=== PATIENT | female | born 1975 | race Hispanic/Latino ===

== ENCOUNTER 2020-04-27 21:17 | Emergency (ER) | payer SELFPAY ==
--- NOTE | ~2020-04-27 | XR_ITS ---
EXAMINATION: XR chest 1V portable DATE: 04/27/2020 21:52 INDICATION: Lower jaw pain. TECHNIQUE: A single frontal view of the chest was obtained. COMPARISON: Chest 2 views 07/18/2019, chest CT 07/18/2019 FINDINGS: There is no pneumonia, pleural effusion, or pneumothorax. Cardiomegaly is noted. IMPRESSION: 1. Cardiomegaly. Reviewed, dictated and finalized at location A. IMPRESSION: 1. Cardiomegaly.
[2020-04-27 21:19] VITALS: BP 183/87; PULSE 66; RESP 18; TEMP 36.5; O2SAT 100
--- NOTE | 2020-04-27 21:29 | ECG_ITS ---
Measurements Intervals [place] Rate: 60 P: 47 MA: 161 QRS: 11 QRSD: 99 T: 28 QT: 399 QTc: 400 Interpretive Statements SINUS RHYTHM POSSIBLE LEFT ATRIAL ENLARGEMENT DELAYED PRECORDIAL R/S TRANSITION BORDERLINE ECG Electronically Signed On 04-28-2020 7:05:25 CDT by Cipriano Aguirre D.O.
--- NOTE | 2020-04-27 21:31 | ED.DENTAL ---
HPI - Dental/Oral General Chief complaint: Dental/Oral Stated complaint: dental pain Time Seen by Provider: 04/27/20 21:25 Source: patient and family Mode of arrival: ambulatory Limitations: language barrier History of Present Illness HPI Narrative: Patient is a 44-year-old female who presents to emergency department for evaluation of gross dental pain to the lower teeth with history of gross dental decay last several days has had sharp pain worse with eating. Patient also noted that she has had some mild discomfort of the mid chest that radiates from the epigastrium up into the mouth. Patient notes that this is been present for the last couple of days. Patient notes that the pain is mild in nature denies other URI symptoms or similar occurrence in the past. On arrival patient in the room in no distress does not have follow-up Related Data Allergies Allergy/AdvReac Type Severity Reaction Status Date / Time No Known Allergies Allergy Verified 04/27/20 21:18 Review of Systems Review of Systems: All systems reviewed & are unremarkable except as noted in HPI and below PMFSH Social History Social History (Updated 04/27/20 @ 21:32 by Derek Jaramillo PA-C) Smoking status: Never smoker Exam Narrative: Exam Narrative: GENERAL: Well-appearing, well-nourished, and in no acute distress. HEAD: Normocephalic, atraumatic. EYES: PERRLA and EOMI. ENT: Nares clear, no rhinorrhea or epistaxis. Mucous membranes moist. Oropharynx without tonsillar hypertrophy exudate. Gross dental caries no fluctuant lesions floor the mouth is soft uvula is midline no trismus or drooling NECK: Supple. No adenopathy or masses. CHEST: Clear to auscultation. No respiratory distress. No wheezes rales or rhonchi HEART: Regular rate and rhythm. No murmur heard. EXTREMITIES: Normal range of motion. No edema. SKIN: Warm, dry, no rash. NEURO: No focal deficits. Alert and oriented x3. Cranial nerves II through XII grossly intact PSYCH: Normal mood and affect. Course Course Emergency Course: Patient in the room in no distress resting comfortably with improvement with medications noting that the discomfort of the chest got better with GI cocktail Vital Signs Vital signs: Vital Signs Temperature 97.7 F 04/27/20 21:19 Pulse Rate 66 04/27/20 21:19 Respiratory Rate 18 04/27/20 21:19 Blood Pressure 183/87 H 04/27/20 21:19 Pulse Oximetry 100 04/27/20 21:19 Temperature 97.7 F 04/27/20 21:19 Pulse Rate 66 04/27/20 21:19 Respiratory Rate 18 04/27/20 21:19 Blood Pressure 183/87 H 04/27/20 21:19 Pulse Oximetry 100 04/27/20 21:19 MDM - Dental/Oral MDM Narrative Medical decision making narrative: Patient in the room in no distress. Patients EKGs and labs are without significant high risk changes. Cardiac risk facotrs were reviewd. Patient is felt likely to be low risk for ACS and reasonable for further risk stratification testing as an outpatient. Pain was not sudden or maximal in onset without tearing or ripping. quality. No other signs or symptoms to suggest aortic dissection. A low-risk Wells criteria is noted. PE is felt to be unlikely. No pneumonia or URI symptoms were seen on evaluation today. Patient is felt to b resonable for continued evaluation as an outpatient. ECG Data EKG #1: ECG completion date: 04/27/20 ECG completion time: 21:53 EKG Interpretation: normal rate, sinus rhythm, non-specific ST changes, no ST changes, normal QRS and NL axis Discharge Plan Discharge Clinical Impression: Dentalgia, Chest pain Patient Disposition: Home, Self-Care Condition: Stable Instructions: Antibiotic Form, Toothache (ED) Additional Instructions: Follow up with your primary care provider within 1-2 days. Go to ER for shortness of breath, difficulty breathing, chest pain, fever/chills, weakness, nauseau/vomitting, unable to swallow or open the mouth etc. or any other concerns. Follow-up with dentistr
[2020-04-27] MEDS: KETOROLAC (*BKC) 60 MG/2 ML VIAL IM (21:51)
[2020-04-27] MEDS: BELLADONNA ALK/PHENOB ELIX 10 ML, MAG HYDROX/ALUMINUM HYD/SIMETH 30 ML, LIDOCAINE HCL 2... PO (21:52)
[2020-04-27 21:57] VITALS: BP 157/104; PULSE 59; RESP 20; O2SAT 100
[2020-04-27 22:05] LABS: Basophils Percent Auto 0.4 % (0.2-1.2); Eosinophils Absolute Auto 0.2 K/mm3 (0-0.3); Eosinophils Percent Auto 2.8 % (0-4.4); Hematocrit 36.6 % (37.0-47.0); Hemoglobin 11.8 g/dL (12.0-15.0); Immature Granulocyte Absolute 0.02 K/mm3 (0.00-0.031); Immature Granulocyte Percent A 0.3 % (0-0.5); Lymphocytes Absolute Auto 2.88 K/mm3 (0.9-3.2); Lymphocytes Percent Auto 36.8 % (18.3-44.2); Mean Corpuscular HGB Conc 32.2 g/dl (32-36); Mean Corpuscular Hemoglobin 26.9 pg (26-34); Mean Corpuscular Volume 83.6 fl (80-100); Mean Platelet Volume 11.8 fl (7.4-10.4); Monocytes Absolute Auto 0.6 K/mm3 (0.1-0.6); Monocytes Percent Auto 7.8 % (2.6-8.5); Neutrophils Absolute Auto 4.1 K/mm3 (1.3-6.7); Neutrophils Percent Auto 51.9 % (45.5-73.1); Platelet Count Result 230 k/mm3 (150-375); Red Blood Count 4.38 M/mm3 (4.2-5.4); Red Cell Distribution Width 14.4 % (11.5-14.5); White Blood Count 7.8 K/mm3 (4.5-10.0)
[2020-04-27 22:16] LABS: Alanine Aminotransferase 32 U/L (4-35); Albumin Level 4.2 g/dL (3.5-5.1); Alkaline Phosphatase 98 U/L (38-126); Aspartate Amino Transferase 28 U/L (14-36); Bilirubin,Total 0.1 mg/dL (0.2-1.3); Blood Urea Nitrogen 22 mg/dL (7-17); Carbon Dioxide 29 mmol/L (22-30); Chloride 102 mmol/L (98-107); Estimated CRCL calculation 72 ml/min; Estimated Glomerular Filt Rate > 60; Glucose 109 mg/dL (65-105); Sodium 136 mmol/L (137-145)
[2020-04-27 22:28] LABS: Troponin I < 0.012 ng/mL (0.000-0.034)
[2020-04-27 22:36] VITALS: BP 148/90; PULSE 66; RESP 20; O2SAT 97
== END 2020-04-27 22:41 | disposition home or self-care (01) ==
PROVIDERS: Emergency Medicine Emergency Medical Services; Emergency Provider Emergency Medicine
DX: K08.89 Other specified disorders of teeth and supporting structures (principal); R07.9 Chest pain, unspecified; R94.31 Abnormal electrocardiogram [ECG] [EKG]
CPT/HCPCS: 36415; 71045; 80053; 84484; 85025; 93005; 96372; 99284; A9270; J1885

== ENCOUNTER 2021-03-13 13:38 | Emergency (ER) | payer SELFPAY ==
--- NOTE | ~2021-03-13 | CT_ITS ---
EXAMINATION: CT abdomen pelvis wo con DATE: 03/13/2021 14:36 INDICATION: Abdominal pain. Dysuria. TECHNIQUE: Computed tomography (CT) of the abdomen and pelvis was performed without intravenous contr ast. The dose-length product was 338.09 mGy-cm. Automated exposure control and iterative reconstructi on technique were employed. COMPARISON: None. FINDINGS: Lung bases are dependent. Heart size mildly enlarged. No significant pleural or pericardial effusion. No significant vascular abnormality. There are punctate 2 mm nonobstructing left renal sto harlan. No significant vascular abnormality. No lymphadenopathy. Colonic diverticulosis without evidence for diverticulitis. The liver, spleen, pancreas, adrenal glands and right kidney are unremarkable. Gallbladder is present . No lytic or blastic lesions. Bladder is not well distended for evaluation of thickening. Appendix w ithin normal limits. Nonobstructive bowel gas pattern. IMPRESSION: 1. Nonobstructing left nephrolithiasis. Reviewed, dictated and finalized at location B.
[2021-03-13 13:40] VITALS: BP 123/75; PULSE 72; RESP 20; TEMP 36.7; O2SAT 100
--- NOTE | 2021-03-13 14:25 | ED.FEMALEGU ---
HPI - Female Genitourinary General Chief complaint: Urogenital-Female Stated complaint: abd pain, dysuria Time Seen by Provider: 03/13/21 14:17 Source: patient and family Mode of arrival: ambulatory Limitations: language barrier (Daughter is interpreting) History of Present Illness HPI Narrative: This is a 45-year-old female that presents the emergency department for dysuria x3 days. Associated with fever and lower abdominal discomfort. Denies nausea, vomiting, or hematuria. Related Data Allergies Allergy/AdvReac Type Severity Reaction Status Date / Time No Known Allergies Allergy Verified 03/13/21 13:43 Review of Systems Review of Systems: Narrative: CONSTITUTIONAL: Reports fever GASTROINTESTINAL: Reports abdominal pain. Denies nausea, vomiting GENITOURINARY: Reports dysuria. Denies hematuria. All systems reviewed & are unremarkable except as noted in HPI and below PMFSH Past Medical History Medical History (Updated 03/13/21 @ 16:36 by Gerda Haines PA-C) History of gastroesophageal reflux (GERD) Surgical History Surgical History (Updated 03/13/21 @ 14:27 by Gerda Haines PA-C) History of section Social History Social History (Updated 04/27/20 @ 21:32 by Derek Jaramillo PA-C) Smoking status: Never smoker Gender identity (if verbalized by the patient): Female Exam Narrative: Exam Narrative: GENERAL: Well-appearing, well-nourished, and in no acute distress. HEAD: Normocephalic, atraumatic. EYES: EOMI. CHEST: Clear to auscultation. No respiratory distress. No wheezes rales or rhonchi HEART: Regular rate and rhythm. No murmur heard. Normal peripheral pulses. ABDOMEN: Soft, nondistended, normal active bowel sounds. Tender to palpation throughout the lower abdomen, without guarding. No CVA tenderness EXTREMITIES: Normal range of motion. No edema. SKIN: Warm, dry, no rash. NEURO: No focal deficits. Alert and oriented x3. PSYCH: Normal mood and affect Course Vital Signs Vital signs: Vital Signs Temperature 98.0 F 03/13/21 13:40 Pulse Rate 72 03/13/21 13:40 Respiratory Rate 20 03/13/21 13:40 Blood Pressure 123/75 03/13/21 13:40 Pulse Oximetry 100 03/13/21 13:40 Temperature 98.0 F 03/13/21 13:40 Pulse Rate 72 03/13/21 13:40 Respiratory Rate 20 03/13/21 13:40 Blood Pressure 123/75 03/13/21 13:40 Pulse Oximetry 100 03/13/21 13:40 MDM - Female Genitourinary MDM Narrative Medical decision making narrative: Patient presents to the emergency department for dysuria and lower abdominal discomfort. She is afebrile and nontoxic-appearing. CBC is without leukocytosis. Does show normocytic anemia with hemoglobin of 11.7. Metabolic panel without concerning findings. UA with evidence of infection, this will be sent for culture. Bedside test is negative. CT scan of the abdomen and pelvis shows nonobstructing left nephrolithiasis. Patient and family updated on case findings. Patient will be started on oral antibiotics for urinary tract infection. She is stable and felt appropriate for further outpatient evaluation. She was given warnings to return to the ER Lab Data Attestation: I reviewed the patient's lab results. Result diagrams: 03/13/21 14:52 03/13/21 14:52 Labs: Lab Results 03/13/21 03/13/21 03/13/21 Range/Units 14:20 14:52 14:52 WBC 6.1 (4.5-10.0) K/mm3 RBC 4.20 (4.2-5.4) M/mm3 Hgb 11.7 L (12.0-15.0) g/dL Hct 35.4 L (37.0-47.0) % MCV 84.3 (80-100) fl MCH 27.9 (26-34) pg MCHC 33.1 (32-36) g/dl RDW 13.5 (11.5-14.5) % Plt Count 268 (150-375) k/mm3 MPV 11.1 H (7.4-10.4) fl Immature Gran % (Auto) 0.3 (0-0.5) % Neut % (Auto) 60.4 (45.5-73.1) % Lymph % (Auto) 28.0 (18.3-44.2) % [place] % (Auto) 8.2 (2.6-8.5) % Eos % (Auto) 2.8 (0-4.4) % Baso % (Auto) 0.3 (0.2-1.2) % Lymph # (Auto) 1.70 (0.9-3.2) K/mm3 [place] # (Auto) 0.5
[2021-03-13 14:39] LABS: Add Urine Microscopic? YES; Appearance Urine Cloudy (Clear); Bacteria Urine Trace /hpf; Bilirubin Urine Negative (Negative); Blood Urine 1+ (Negative); Color Urine Yellow (Yellow); Glucose Urine UA Negative (Negative); Ketones Urine Negative (Negative); Leukocyte Esterase Ur 1+ LEU/UL (Negative); Mucus Urine Rare /lpf; Nitrate Urine Negative (Negative); Protein Urine 1+ mg/dL (Negative); RBC Urine 51-75 /hpf (0-2); Specific Grav Ur 1.017 (1.001-1.035); Squamous Epithelial Cell Urine Many /hpf (Few); Urobilinogen Urine Negative mg/dL (<2.0); WBC Urine 16-20 /hpf
[2021-03-13 15:00] LABS: Basophils Percent Auto 0.3 % (0.2-1.2); Eosinophils Absolute Auto 0.2 K/mm3 (0-0.3); Eosinophils Percent Auto 2.8 % (0-4.4); Hematocrit 35.4 % (37.0-47.0); Hemoglobin 11.7 g/dL (12.0-15.0); Immature Granulocyte Absolute 0.02 K/mm3 (0.00-0.031); Immature Granulocyte Percent A 0.3 % (0-0.5); Mean Corpuscular HGB Conc 33.1 g/dl (32-36); Mean Corpuscular Hemoglobin 27.9 pg (26-34); Mean Corpuscular Volume 84.3 fl (80-100); Mean Platelet Volume 11.1 fl (7.4-10.4); Monocytes Absolute Auto 0.5 K/mm3 (0.1-0.6); Monocytes Percent Auto 8.2 % (2.6-8.5); Neutrophils Absolute Auto 3.7 K/mm3 (1.3-6.7); Neutrophils Percent Auto 60.4 % (45.5-73.1); Platelet Count Result 268 k/mm3 (150-375); Red Cell Distribution Width 13.5 % (11.5-14.5); White Blood Count 6.1 K/mm3 (4.5-10.0)
[2021-03-13 15:10] LABS: Anion Gap 5 mmol/L (8-16); Blood Urea Nitrogen 11 mg/dL (7-17); Calcium 9.1 mg/dL (8.4-10.2); Carbon Dioxide 32 mmol/L (22-30); Chloride 102 mmol/L (98-107); Estimated CRCL calculation 93 ml/min; Estimated Glomerular Filt Rate > 60; Glucose 135 mg/dL (65-105); Potassium 3.7 mmol/L (3.4-5.0); Sodium 139 mmol/L (137-145)
[2021-03-13] MEDS: ACETAMINOPHEN 500 MG TABLET 1000 MG PO (15:27)
[2021-03-13 17:00] VITALS: BP 143/77; PULSE 64; RESP 17; O2SAT 100
== END 2021-03-13 17:03 | disposition home or self-care (01) ==
PROVIDERS: Physician Assistant; Emergency Provider Emergency Medicine
DX: N30.00 Acute cystitis without hematuria (principal); K21.9 Gastro-esophageal reflux disease without esophagitis; N20.0 Calculus of kidney
CPT/HCPCS: 36415; 74176; 80048; 81001; 81025; 85025; 87077; 87086; 87088; 99284; A9270

== ENCOUNTER 2022-12-09 10:23 | Emergency (ER) | payer SELFPAY ==
[2022-12-09] VITALS (17 sets, daily range): BP systolic 131–149; BP diastolic 69–85; PULSE 57–72; RESP 16–20; TEMP 36.8; O2SAT 98–100
--- NOTE | ~2022-12-09 | CT_ITS ---
Non-contrast Head CT History: Headache Technique: Axial non-contrast imaging of the brain was performed. Dose reduction technique was used on this scan by utilizing automated exposure control and iterative reconstruction technique. The dose -length product (DLP) was 605.33 mGy-cm. Findings: There is no evidence of intracranial hemorrhage, mass lesion, or acute infarct. Brain par enchyma appears normal. The ventricles and subarachnoid spaces are normal in size. The calvarium ap pears normal. The visualized paranasal sinuses and mastoid air cells are clear. Impression: No significant abnormality seen. Reviewed, dictated and finalized at location . 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
--- NOTE | ~2022-12-09 | CT_ITS ---
Noncontrast CT scan of the cervical spine Technique: Multiple contiguous axial [address] images of the cervical spine were obtained and rec onstructed in 2D sagittal and coronal planes on the acquisition scanner. Dose reduction technique was used on this scan by utilizing automated exposure control, adjustment of the mA and/or kV according to patient size. Clinical History: Pain Findings: No fractures or dislocations. There is mild degenerative disc disease at C5-C6. There is p robable focal ossification of posterior longitudinal ligament along the posterior margin of the C6 ve rtebral body, without [place] canal stenosis. No prevertebral soft tissue swelling. Impression: No fracture or subluxation of the cervical spine. Other findings, as above. Reviewed, dictated and finalized at location . 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 Other findings, as above.
--- NOTE | 2022-12-09 11:02 | ED.NECK ---
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 She says that the pain is going down her neck into her back. She denies having any increased pain with movement. She feels like the pain goes into her anterior chest as well. Symptoms started 2 days ago and has been continuous. She says that the chest discomfort started early this morning. No shortness of breath. No fever or chills. She denies having any recent injury or heavy lifting. She does remember having a fall 2 months ago down some steps where she did hit her back and her head. She did not get evaluated at that time. She also reports generalized joint pain to her elbows hands and her knees. This is not a new problem she has had this ongoing for a while. She has been taking ibuprofen with no relief. She denies having any numbness and tingling or weakness currently. She does report getting some tingling in her hands at night. Related Data Allergies Allergy/AdvReac Type Severity Reaction Status Date / Time No Known Allergies Allergy Verified 03/13/21 13:43 Review of Systems Review of Systems: CONSTITUTIONAL: Denies fever, chills, or sweats. EYES: Denies visual changes, redness, or discharge. CARDIOVASCULAR: Denies palpitations, or edema. Reports chest pain which she says radiates from her neck RESPIRATORY: Denies cough or dyspnea. GASTROINTESTINAL: Denies abdominal pain, nausea, vomiting, or diarrhea. GENITOURINARY: Denies dysuria or hematuria. SKIN: Denies rash or itching. MUSCULOSKELETAL: Neck pain, generalized joint pain, large and small joints NEUROLOGIC: posterior headache, gradual onset PMFSH Past Medical History Medical History History of gastroesophageal reflux (GERD) Surgical History Surgical History History of section Social History Social History Smoking status: Never smoker Gender identity (if verbalized by the patient): Female Exam Narrative: GENERAL: Well-appearing, well-nourished, and in no acute distress. HEAD: Normocephalic, atraumatic. EYES: ANTOINETTE and EOMI. NECK: Supple. No adenopathy or masses. CHEST: Clear to auscultation. No respiratory distress. No wheezes rales or rhonchi HEART: Regular rate and rhythm. No murmur heard. Normal peripheral pulses. ABDOMEN: Soft, nontender, nondistended, normal active bowel sounds. EXTREMITIES: Normal range of motion. No edema. SKIN: Warm, dry, no rash. Musculoskeletal: Reports tenderness with palpation of the cervical spine, no increased pain with movement, full normal ROM noted on exam, joints of upper and lower extremities appear normal without swelling or erythema. NEURO: No focal deficits. Alert and oriented x3. PSYCH: Normal mood and affect. Course Course Emergency Course: 1250 Pt reports that her pain is better after getting the pain medication. No new problems or concerns. She says that she just feels weak and dizzy after getting the medication. Medical Record Assistant service used again for reevaluation and discussion of plan for discharge. Will send RX for pain medication, muscle relaxer and patient agrees to see PCP for follow up. Reevaluation(s) Reevaluation #1: pain improved Date: 12/09/22 Time: 12:50 Vital Signs Vital signs: Vital Signs Temperature 36.8 C 12/09/22 10:40 Pulse Rate 67 12/09/22 10:40 Respiratory Rate 16 12/09/22 10:40 Blood Pressure 149/85 H 12/09/22 10:40 Pulse Oximetry 100 12/09/22 10:40 Oxygen Delivery Room Air 12/09/22 10:40 Tempera
--- NOTE | 2022-12-09 11:04 | ECG_ITS ---
Measurements Intervals [place] Rate: 63 P: 44 [place]: 172 QRS: 14 QRSD: 93 T: 80 QT: 369 QTc: 379 Interpretive Statements SINUS RHYTHM DELAYED PRECORDIAL R/S TRANSITION NONSPECIFIC T-WAVE ABNORMALITY- LAT/HIGH LAT LEADS BASELINE ARTIFACT- I, II, III, AVR, AVL, AVF, V1, V4-V5 BORDERLINE ECG COMPARED TO ECG 04/27/2020 21:53:46 T-WAVE ABNORMALITY NOW PRESENT Electronically Signed On 12-09-2022 11:48:57 [employer]CHO[employer] PROFESSIONAL by Cipriano Aguirre D.O.
[2022-12-09] MEDS: MORPHINE SULFATE (*CRX) 2 MG/ML INJ IV PUSH (11:34)
[2022-12-09] MEDS: ONDANSETRON INJ 4 MG/2 ML VIAL IV PUSH (11:34)
[2022-12-09] MEDS: CYCLOBENZAPRINE HCL 10 MG TABLET PO (11:35)
[2022-12-09 11:44] LABS: Basophils Percent Auto 0.4 % (0.2-1.2); Eosinophils Absolute Auto 0.1 K/mm3 (0-0.3); Eosinophils Percent Auto 2.2 % (0-4.4); Hematocrit 37.5 % (37.0-47.0); Hemoglobin 12.6 g/dL (12.0-15.0); Immature Granulocyte Absolute 0.02 K/mm3 (0.00-0.031); Immature Granulocyte Percent A 0.4 % (0-0.5); Lymphocytes Absolute Auto 1.49 K/mm3 (0.9-3.2); Lymphocytes Percent Auto 29.5 % (18.3-44.2); Mean Corpuscular HGB Conc 33.6 g/dl (32-36); Mean Corpuscular Hemoglobin 27.5 pg (26-34); Mean Corpuscular Volume 81.9 fl (80-100); Mean Platelet Volume 11.6 fl (7.4-10.4); Monocytes Absolute Auto 0.5 K/mm3 (0.1-0.6); Monocytes Percent Auto 9.3 % (2.6-8.5); Neutrophils Absolute Auto 2.9 K/mm3 (1.3-6.7); Neutrophils Percent Auto 58.2 % (45.5-73.1); Platelet Count Result 190 k/mm3 (150-375); Red Blood Count 4.58 M/mm3 (4.2-5.4); Red Cell Distribution Width 13.6 % (11.5-14.5); White Blood Count 5.1 K/mm3 (4.5-10.0)
[2022-12-09 11:59] LABS: Alanine Aminotransferase 54 U/L (6-35); Albumin Level 3.9 g/dL (3.5-5.1); Alkaline Phosphatase 133 U/L (38-126); Anion Gap 6 mmol/L (8-16); Aspartate Amino Transferase 34 U/L (14-36); Bilirubin,Total 0.4 mg/dL (0.2-1.3); Blood Urea Nitrogen 12 mg/dL (7-17); CRP 0.6 mg/dL (<1.0); Calcium 8.5 mg/dL (8.4-10.2); Carbon Dioxide 30 mmol/L (22-30); Chloride 105 mmol/L (98-107); Estimated CRCL calculation 102 ml/min; Estimated Glomerular Filt Rate > 60; Glucose 126 mg/dL (65-110); Potassium 3.6 mmol/L (3.4-5.0); Sodium 141 mmol/L (137-145)
[2022-12-09 12:05] LABS: D Dimer 0.51 ug/mL (<0.48)
[2022-12-09 12:08] LABS: Troponin I < 0.012 ng/mL (0.000-0.034)
[2022-12-09 12:24] LABS: Appearance Urine Clear (Clear); Bilirubin Urine Negative (Negative); Blood Urine Trace-lysed (Negative); Color Urine Yellow (Yellow); Glucose Urine UA Negative (Negative); Ketones Urine Negative (Negative); Leukocyte Esterase Ur Negative LEU/UL (Negative); Nitrate Urine Negative (Negative); Protein Urine Negative (Negative); Specific Grav Ur 1.015 (1.001-1.035); Urobilinogen Urine 0.2 mg/dL (<2.0)
[2022-12-09 12:32] LABS: Erythrocyte Sedimentation Rate 17 mm/hr (0-20)
[2022-12-09 12:32] LABS: Bacteria Urine Trace /hpf; Mucus Urine Rare /lpf; RBC Urine 0-2 /hpf (0-2); Squamous Epithelial Cell Urine Moderate /hpf (Few); WBC Urine 0-3 /hpf
[2022-12-09 12:34] LABS: Add Urine Microscopic? YES
== END 2022-12-09 13:27 | disposition home or self-care (01) ==
PROVIDERS: Emergency Provider Nurse Practitioner Family
DX: R51.9 Headache, unspecified (principal); M54.12 Radiculopathy, cervical region; K21.9 Gastro-esophageal reflux disease without esophagitis; R94.31 Abnormal electrocardiogram [ECG] [EKG]
CPT/HCPCS: 36415; 70450; 72125; 80053; 81001; 81025; 84484; 85025; 85380; 85652; 86140; 93005; 96374; 96375; 99284; A9270; J2270; J2405

== ENCOUNTER 2024-03-28 12:49 | Emergency (ER) | payer SELFPAY ==
--- NOTE | ~2024-03-28 | XR_ITS ---
EXAMINATION: XR chest 1V portable DATE: 03/28/2024 15:03 INDICATION: Chest pain TECHNIQUE: frontal view of the chest was obtained. COMPARISON: Chest radiograph dated 04/27/2020 FINDINGS: The lungs remain clear with no focal airspace opacities, pulmonary edema, pleural effusion or pneumot horax. The cardiomediastinal silhouette is normal. Visualized bones and soft tissues are unremarkable . IMPRESSION: 1. No acute cardiopulmonary disease. Reviewed, dictated and finalized at location A.
--- NOTE | ~2024-03-28 | XR_ITS ---
EXAMINATION: XR elbow RT 2V DATE: 03/28/2024 15:03 INDICATION: Right elbow pain TECHNIQUE: Anteroposterior, two oblique and lateral views of the right elbow were obtained. COMPARISON: None. FINDINGS: Alignment is normal. No fracture or joint effusion. Joint spaces are normal. Soft tissues are unremar kable. IMPRESSION: 1. . Negative right elbow radiographs. Reviewed, dictated and finalized at location A.
[2024-03-28 12:51] VITALS: BP 148/118; PULSE 80; RESP 20; TEMP 36.7; O2SAT 99
--- NOTE | 2024-03-28 14:49 | ECG_ITS ---
SEE SCANNED COPY FOR CONFIRMED REPORT MTDD
--- NOTE | 2024-03-28 14:51 | ED.GENADULT ---
HPI - General Adult General Chief complaint: Extremity Injury, Upper Stated complaint: right arm and back pain Time Seen by Provider: 03/28/24 13:58 History of Present Illness HPI narrative: 48-year-old female presenting emergency department for evaluation of multiple complaints. Patient states that she has developed some right elbow pain and bilateral wrist swelling over the last few days. Patient states he has also had some increased swelling of her lower extremities. Patient states she is diabetic and has been taking metformin. Patient denies any prior history of arthritis. Patient states she has been having some increased chest pressure as well but denies any cardiac history. Related Data Allergies Allergy/AdvReac Type Severity Reaction Status Date / Time No Known Allergies Allergy Verified 03/13/21 13:43 Review of Systems Review of Systems: All systems reviewed & are unremarkable except as noted in HPI and below PMFSH Past Medical History Medical History History of gastroesophageal reflux (GERD) Surgical History Surgical History History of section Social History Social History Smoking status: Never smoker Gender identity (if verbalized by the patient): Female Exam Narrative: APPEARANCE: Well appearing, no pain, no distress, well-nourished. HEAD: normocephalic, atraumatic. EYES: PERRLA/EOMI, conjunctivae clear. NOSE: Normal no drainage EARS:TMS clear with good light reflex. THROAT: Pharynx clear, no exudate. NECK: Supple. No adenopathy, no masses. RESPIRATORY: Airway patent, respirations nonlabored. Clear to auscultation bilaterally, no rales, rhonchi, wheezing. CARDIOVASCULAR: Regular rate and rhythm without murmurs rubs or gallops. ABDOMINAL: Soft, nontender, nondistended, normal bowel sounds MUSCULOSKELETAL: Right elbow tenderness to palpation with no deformity. Mild hand swelling NEURO: Alert. Cranial nerves II through XII intact. Good gait. Good coordination SKIN: Warm, dry. Normal Color Course Vital Signs Vital signs: Vital Signs Temperature 98.1 F 03/28/24 12:51 Pulse Rate 80 03/28/24 12:51 Respiratory Rate 20 03/28/24 12:51 Blood Pressure 148/118 H 03/28/24 12:51 Pulse Oximetry 99 03/28/24 12:51 Oxygen Delivery Room Air 03/28/24 12:51 Temperature 98.1 F 03/28/24 12:51 Pulse Rate 80 03/28/24 12:51 Respiratory Rate 20 03/28/24 12:51 Blood Pressure 148/118 H 03/28/24 12:51 Pulse Oximetry 99 03/28/24 12:51 Oxygen Delivery Room Air 03/28/24 12:51 Medical Decision Making MDM Narrative Medical decision making narrative: 48-year-old female presents emergency department for evaluation for right elbow pain and pain of multiple joints. Patient is afebrile with no leukocytosis and a stable hemoglobin. Patient had no acute abnormalities on her CMP patient had a negative troponin. Chest x-ray showed no acute abnormality and elbow also showed no acute abnormality. Patient was started on Medrol Dosepak for suspect arthritic pain. Vital Signs Vital Signs: Vital Signs Temperature 98.1 F 03/28/24 12:51 Pulse Rate 80 03/28/24 12:51 Respiratory Rate 20 03/28/24 12:51 Blood Pressure 148/118 H 03/28/24 12:51 Pulse Oximetry 99 03/28/24 12:51 Oxygen Delivery Room Air 03/28/24 12:51 Temperature 98.1 F 03/28/24 12:51 Pulse Rate 80 03/28/24 12:51 Respiratory Rate 20 03/28/24 12:51 Blood Pressure 148/118 H 03/28/24 12:51 Pulse Oximetry 99 03/28/24 12:51 Oxygen Delivery Room Air 03/28/24 12:51 Lab Data 03/28/24 15:38 03/28/24 15:37 Labs: Lab Results 03/28/24 03/28/24 Range/Units 15:37 15:38 WBC 6.0 (4.5-10.0) K/mm3 RBC 4.78 (4.2-5.4) M/mm3 Hgb 12.9 (12.0-15.0) g/dL Hct
[2024-03-28 15:57] LABS: Basophils Percent Auto 0.3 % (0.2-1.2); Eosinophils Absolute Auto 0.2 K/mm3 (0-0.3); Eosinophils Percent Auto 2.8 % (0-4.4); Hematocrit 39.4 % (37.0-47.0); Hemoglobin 12.9 g/dL (12.0-15.0); Immature Granulocyte Absolute 0.02 K/mm3 (0.00-0.031); Immature Granulocyte Percent A 0.3 % (0-0.5); Lymphocytes Absolute Auto 2.22 K/mm3 (0.9-3.2); Lymphocytes Percent Auto 36.8 % (18.3-44.2); Mean Corpuscular HGB Conc 32.7 g/dl (32-36); Mean Corpuscular Volume 82.4 fl (80-100); Mean Platelet Volume 11.8 fl (7.4-10.4); Monocytes Absolute Auto 0.4 K/mm3 (0.1-0.6); Neutrophils Absolute Auto 3.2 K/mm3 (1.3-6.7); Neutrophils Percent Auto 52.8 % (45.5-73.1); Platelet Count Result 230 k/mm3 (150-375); Red Blood Count 4.78 M/mm3 (4.2-5.4); Red Cell Distribution Width 13.4 % (11.5-14.5)
[2024-03-28 16:09] LABS: Alanine Aminotransferase 54 U/L (6-35); Albumin Level 4.4 g/dL (3.5-5.1); Alkaline Phosphatase 139 U/L (38-126); Anion Gap 8 mmol/L (4-12); Aspartate Amino Transferase 30 U/L (14-36); Bilirubin,Total 0.4 mg/dL (0.2-1.3); Blood Urea Nitrogen 14 mg/dL (7-17); Calcium 9.3 mg/dL (8.4-10.2); Carbon Dioxide 25 mmol/L (22-30); Chloride 107 mmol/L (98-107); Estimated CRCL calculation 107 ml/min; Estimated Glomerular Filt Rate > 60; Glucose 135 mg/dL (65-110); Potassium 3.5 mmol/L (3.4-5.0); Sodium 140 mmol/L (137-145)
[2024-03-28 16:12] LABS: Prothrombin Time 13.2 Seconds (11.1-14.7)
[2024-03-28 16:13] LABS: Partial Thromboplastin Time 27.5 Seconds (22.3-36.8)
[2024-03-28 16:19] LABS: Troponin I < 0.012 ng/mL (0.000-0.034)
== END 2024-03-28 16:48 | disposition home or self-care (01) ==
PROVIDERS: Emergency Provider Emergency Medicine
DX: M19.021 Primary osteoarthritis, right elbow (principal); K21.9 Gastro-esophageal reflux disease without esophagitis
CPT/HCPCS: 36415; 71045; 73070; 80053; 84484; 85025; 85610; 85730; 93005; 99284

== ENCOUNTER 2024-12-09 12:45 | Emergency (ER) | payer SELFPAY ==
[2024-12-09] VITALS (9 sets, daily range): BP systolic 135–151; BP diastolic 76–95; PULSE 63–76; RESP 16–18; TEMP 36.3–36.8; O2SAT 97–100
--- NOTE | ~2024-12-09 | CT_ITS ---
EXAMINATION: CT brain wo con DATE: 12/09/2024 16:18 INDICATION: dizziness . TECHNIQUE: Computed tomography (CT) of the head was performed without intravenous contrast. The mA wa s adjusted according to patient size. Iterative reconstruction technique was employed. The dose-lengt h product was 605.33 mGy-cm. COMPARISON: 12/09/2022. FINDINGS: No acute intracranial hemorrhage or extra-axial fluid collection. No hydrocephalus, mass, or herniation. No acute ischemic infarct. Unremarkable dural venous sinus attenuation. No acute osseous abnormality. The aerated spaces are clear. IMPRESSION: No acute intracranial process. Reviewed, dictated and finalized at location [employer]
--- OUTSIDE RECORDS SUMMARY | 2024-12-09 12:50 | XMS_ITS | Clinical Summary ---
Author Organization [facility] Address [address] [place] [address] Phone Care Team Providers Care Senior Commissions Analyst Name Role Phone Unavailable Primary Care Provider Unavailabl e Social History Tobacco Use Types Packs/Day Years Used Date Smoking Tobacco: Never Assessed Comments Unknown Sex and Gender Information Value Date Recorded Sex Assigned at Not on file Legal Sex Female 9:53 AM CDT Gender Identity Not on file Sexual Orientation Not on file Plan of Treatment Health Maintenance Due Date Last Done Comments Hepatitis C Virus (HCV) Screening 1973 TdaP Immunization 1973 Hepatitis B Immunization (1 of 3 - 19+ 3-dose series) 1992 Pap Smear 1994 Cervical Cancer Screening (CCS) 2003 HPV/Cotest 2003 Colonoscopy 2018 Colorectal Cancer Screening 2018 Cologuard 2023 Immunochemical Fecal Occult Blood 2023 Mammogram 2023 Pneumococcal Immunization (5 0+ years) (1 of 1 - PCV) 2023 Zoster Immunization (1 of 2) 2023 Influenza Immunization (#1) 2024 SARS-COV-2 Immunization ( - 2023-25 season) 2024 Respiratory Syncytial Virus (RSV) Immunization (Adult) (1 - 1-dose 75+ series) 2048 Meningococcal Immunization (ACWY) Aged Out No longer eligible based on patient's age to complete this topic Pneumococcal Immunization Combined Aged Out No longer eligible based on patient's age to complete this topic Rotavirus Immunization Aged Out No lo nger eligible based on patient's age to complete this topic Insurance MEDICAID [employer]
[2024-12-09 12:57] LABS: Glucose Point of Care 256 mg/dl (65-105)
--- NOTE | 2024-12-09 15:54 | ED_ITS ---
HPI - Dizziness General Chief Complaint: Dizziness Stated Complaint: dizzy, nausea, Type 2 diabetic Time Seen by Provider: 12/09/24 15:49 Source: patient Mode of arrival: ambulatory Limitations: no limitations and language barrier History of Present Illness HPI Narrative: Patient is a 49 y/o female, with PMH of DM, who presents to the ED with c/o dizziness. Patient is primarily Citizen [place] speaking. 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 Patient reports she has been intermittently dizzy over the last 2 weeks. Worse with certain movements. Feels as though the room is spinning. She reports having nausea associated with the dizziness. She also reports having intermittent headaches, pain throughout her left-sided back and neck. Took Advil this morning the pain. Denies vision changes, focal weakness or numbness, syncope, CP, SOB, fevers. Related Data Allergies Allergy/AdvReac Type Severity Reaction Status Date / Time No Known Allergies Allergy Verified 03/13/21 13:43 Review of Systems 2 Review of Systems: All systems reviewed & are unremarkable except as noted in HPI. All systems reviewed & are unremarkable except as noted in HPI and below PMFSH Past Medical History Medical History (Updated 12/09/24 @ 18:47 by Shameka Villanueva PA-C) Diabetes History of gastroesophageal reflux (GERD) Surgical History Surgical History History of section Social History Social History Smoking status: Never smoker Gender identity (if verbalized by the patient): Female Exam 2 Narrative: GENERAL: Well appearing, obese with BMI of 30.7, non-toxic, in no acute distress. HEAD: Normocephalic, atraumatic. EYES: PERRL/EOMI, conjunctivae clear bilaterally. No significant nystagmus. ENT: TMs clear bilaterally. No significant cerumen. No evidence of AOE/AOM NECK: Supple. No meningeal signs. Mild TTP diffusely throughout posterior cervical region into L paraspinal musculature and L upper trapezius region. RESPIRATORY: Airway patent, respirations nonlabored. Clear to auscultation bilaterally, no rales, rhonchi, wheezing. CARDIOVASCULAR: Regular rate and rhythm without murmurs, rubs, or gallops. Peripheral pulses 2+ and equal bilaterally. MUSCULOSKELETAL: Moves all extremities. No gross deformities. SKIN: Warm, dry, normal color. No rashes. NEURO: A&O X3. Speech clear. Follows commands. CN II-XII intact. Sensation grossly intact. Steady gait. No ataxic movements. Strength 5/5 in upper and lower extremities bilaterally. No pronator drift. Equal manager ambulatory strength bilaterally. PSYCHIATRIC: Appropriate mood and affect. Normal interaction. Course Vital Signs Vital signs: Vital Signs Temperature 97.4 F L 12/09/24 12:53 Pulse Rate 76 12/09/24 12:53 Respiratory Rate 16 12/09/24 12:53 Blood Pressure 151/85 H 12/09/24 12:53 Pulse Oximetry 98 12/09/24 12:53 Oxygen Delivery Room Air 12/09/24 12:53 Temperature 98.2 F 12/09/24 19:17 Pulse Rate 73 12/09/24 19:17 Respiratory Rate 16 12/09/24 19:17 Blood Pressure 138/77 12/09/24 19:17 Pulse Oximetry 100 12/09/24 19:17 Oxygen Delivery Room Air 12/09/24 12:53 MDM - Dizziness MDM Narrative Medical decision making narrative: Patient presented to ED with 2 week history of intermittent dizziness, described as the room is spinning. Worse with certain movements. Vital signs are stable upon arrival. Patient is denying any red flag symptoms. She is neurologically intact upon my exam. No focal deficits. CT brain was obtained and negative for acute findings. Patient is reporting some neck pain and left upper back pain. Seems musculoskeletal in nature, focal reproducible tenderness on exam. EKG is nonischemic. Laboratory studies are fairly unremarkable. No leukocytosis or anemia. Stable electrolytes. Blood glucose is mildly elevated to 127. Viral swabs negative. Symptoms seem most consistent with BPPV, low suspicion for central cause of vertigo given prolonged symptoms with normal neurologic exam/brain imaging today. Patient given fluids, meclizine, Zofran, Valium in the ED. On reeval, she is feeling significantly better. Denies any further dizziness. Orthostatic vital signs were evaluated after fluid administration and no significant change in heart rate or blood pressure. Patient denied feeling dizzy with these position changes. At this time, feel she is safe for discharge home with outpatient follow-up. Discussed high likelihood of BPPV, will prescribe Zofran and meclizine for home use. Recommended that patient have follow-up with her primary care doctor within the next 1 week for further evaluation. Discussed very strict return precautions, including signs and symptoms of central cause of vertigo. Patient voiced understanding. She feels comfortable going home. Discharged in stable condition. Ambulatory with a steady gait. Remains neurologically intact. Medical Records Attestation: I reviewed the patient's medical records. Lab Data Attestation: I reviewed the patient's lab results. 12/09/24 16:38 12/09/24 16:38 Labs: Lab Results 12/09/24 12/09/24 Range/Units 12:55 16:38 WBC 5.8 (4.5-10.0) K/mm3 RBC 4.75 (4.2-5.4) M/mm3 Hgb 12.8 (12.0-15.0) g/dL Hct 39.5 (37.0-47.0) % MCV 83.2 (80-100) fl MCH 26.9 (26-34) pg MCHC 32.4 (32-36) g/dl RDW 13.3 (11.5-14.5) % Plt Count 240 (150-375) k/mm3 MPV 11.7 H (7.4-10.4) fl Immature Gran % (Auto) 0.2 (0-0.5) % Neut % (Auto) 49.2 (45.5-73.1) % Lymph % (Auto) 38.8 (18.3-44.2) % Curry % (Auto) 9.1 H (2.6-8.5) % Eos % (Auto) 2.4 (0-4.4) % Baso % (Auto) 0.3 (0.2-1.2) % Lymph # (Auto) 2.25 (0.9-3.2) K/mm3 Curry # (Auto) 0.5 (0.1-0.6) K/mm3 Eos # (Auto) 0.1 (0-0.3) K/mm3 Baso # (Auto) 0.0 (0.0-0.1) K/mm3 Abs Immat Gran (auto) 0.01 (0.00-0.031) K/mm3 Absolute Neuts (auto) 2.9 (1.3-6.7) K/mm3 Absolute Nucleated RBC 0.000 (0.0-0.012) K/mm3 Nucleated RBC % 0.0 (0.0-0.2) % Sodium 140 (137-145) mmol/L Potassium 3.8 (3.4-5.0) mmol/L Chloride 102 (98-107) mmol/L Carbon Dioxide 30 (22-30) mmol/L Anion Gap 8 (4-12) mmol/L BUN 17 (7-17) mg/dL Creatinine 0.66 L (0.7-1.0) mg/dL Estim Creat Clear Calc 79 ml/min Estimated GFR > 60 (59 - ) Glucose 127 H (65-110) mg/dL POC Capillary Glucose 256 H (65-105) mg/dl Calcium 9.0 (8.4-10.2) mg/dL Total Bilirubin 0.4 (0.2-1.3) mg/dL AST 33 (14-36) U/L ALT 51 H (6-35) U/L Alkaline Phosphatase 123 (38-126) U/L Total Protein 7.0 (6.3-8.2) g/dL Albumin 4.1 (3.5-5.1) g/dL Influenza A (RT-PCR) Negative (Negative) Influenza B (RT-PCR) Negative (Negative) RSV (RT-PCR) Negative (Negative) SARS-CoV-2 RNA (RT-PCR) Negative (Negative) Imaging Data Attestation: I personally reviewed and interpreted this imaging study as follows: Radiologist's impression: ITS Impressions Head CT 12/09/24 16:28 IMPRESSION: No acute intracranial process. ECG Data EKG #1: Attestation: I personally reviewed and interpreted this ECG as follows: ECG completion date: 12/09/24 ECG completion time: 16:34 EKG Interpretation: normal rate (69), sinus rhythm, no ST changes and other (some baseline wander) Discharge Plan Discharge Clinical Impression: Benign paroxysmal positional vertigo Qualifiers: Laterality: unspecified laterality Qualified Code(s): H81.10 - Benign paroxysmal vertigo, unspecified ear Patient Disposition: Home, Self-Care Condition: Stable Instructions: Antibiotic Form, Vertigo (ED), Benign Paroxysmal Positional Vertigo (ED), Dizziness (ED) Additional Instructions: Your workup here was reassuring. Stay well hydrated at home. Utilize meclizine as needed for further dizziness. Utilize Zofran as needed for nausea. You may try Mark maneuver to reposition crystals in ears. You may continue Tylenol and ibuprofen as needed for muscle pain/aches. Follow-up closely with your primary care doctor for further evaluation within the next 1 week. Return to the ED if you experience worsening or severe dizziness, unable to keep down food or drink, severe headache or pain, chest pain, difficulty breathing, numbness or weakness of arm or leg, passing out, or any other symptoms of concern. Patient Language: Citizen [place] Prescriptions: New meclizine 25 mg tablet 25 mg PO TID PRN (Reason: dizziness) Qty: 15 0RF ondansetron 4 mg tablet,disintegrating 4 mg PO Q8H PRN (Reason: nausea and vomiting) Qty: 15 0RF No Action cefdinir 300 mg capsule 300 mg PO Q12H 7 Days Qty: 14 0RF naproxen [Naprosyn] 500 mg tablet 500 mg PO BID PRN (Reason: pain) Qty: 30 0RF cyclobenzaprine 10 mg tablet 10 mg PO TID PRN (Reason: muscle spasm) Qty: 14 0RF hydrocodone-acetaminophen 5-325 mg tablet 1 tablet PO Q6H PRN (Reason: pain) Qty: 10 0RF amoxicillin 500 mg capsule 500 mg PO TID 10 Days Qty: 30 0RF chlorhexidine gluconate [Peridex] 0.12 % mouthwash 15 ml MUCOUS MEM BID Qty: 1500 0RF famotidine [Pepcid] 20 mg tablet 20 mg PO BID Qty: 30 0RF ibuprofen [IBU] 600 mg tablet 600 mg PO QID PRN (Reason: fever or pain) Qty: 7 0RF methylprednisolone [Medrol ([place])] 4 mg tablets,dose pack See Rx Instructions .ROUTE .COMPLEX Qty: 21 0RF Rx Instructions: orally per package directions Follow-up/Referrals: UNKNOWN,DOCTOR [Primary Care Provider] - Time of Disposition: 18:47
--- NOTE | 2024-12-09 15:56 | ECG_ITS ---
Test Date: 2024-12-09 16:34:12 Measurements Intervals [place] Rate: 69 P: 12 MT: 163 QRS: 6 QRSD: 94 T: 49 QT: 375 QTc: 403 Interpretive Statements SINUS RHYTHM No previous ECG available for comparison Electronically Signed On 12-09-2024 22:01:10 CASH APPLICATION CLERK by Lianne Mcqueen M.D.
--- OUTSIDE RECORDS SUMMARY | 2024-12-09 15:57 | XMS_ITS | Clinical Summary ---
Author Organization [facility] Address [address] [place] [address] Phone Care Team Providers Care Manager Asset Name Role Phone Unavailable Primary Care Provider [...]
[2024-12-09] MEDS: SODIUM CHLORIDE 0.9% IV 1,000 ML 999 ML IV CONT (16:46)
[2024-12-09] MEDS: diazePAM INJ (*CRX) 10 MG/2 ML SYRINGE 2 MG IV PUSH (16:47)
[2024-12-09 16:48] LABS: Basophils Percent Auto 0.3 % (0.2-1.2); Eosinophils Absolute Auto 0.1 K/mm3 (0-0.3); Eosinophils Percent Auto 2.4 % (0-4.4); Hematocrit 39.5 % (37.0-47.0); Hemoglobin 12.8 g/dL (12.0-15.0); Immature Granulocyte Absolute 0.01 K/mm3 (0.00-0.031); Immature Granulocyte Percent A 0.2 % (0-0.5); Lymphocytes Absolute Auto 2.25 K/mm3 (0.9-3.2); Lymphocytes Percent Auto 38.8 % (18.3-44.2); Mean Corpuscular HGB Conc 32.4 g/dl (32-36); Mean Corpuscular Hemoglobin 26.9 pg (26-34); Mean Corpuscular Volume 83.2 fl (80-100); Mean Platelet Volume 11.7 fl (7.4-10.4); Monocytes Absolute Auto 0.5 K/mm3 (0.1-0.6); Monocytes Percent Auto 9.1 % (2.6-8.5); Neutrophils Absolute Auto 2.9 K/mm3 (1.3-6.7); Neutrophils Percent Auto 49.2 % (45.5-73.1); Platelet Count Result 240 k/mm3 (150-375); Red Blood Count 4.75 M/mm3 (4.2-5.4); Red Cell Distribution Width 13.3 % (11.5-14.5); White Blood Count 5.8 K/mm3 (4.5-10.0)
[2024-12-09] MEDS: ONDANSETRON INJ 4 MG/2 ML VIAL IV PUSH (16:48)
[2024-12-09] MEDS: ACETAMINOPHEN 500 MG TABLET 1000 MG PO (16:49)
[2024-12-09] MEDS: MECLIZINE HCL 25 MG TABLET PO (16:49)
[2024-12-09 17:00] LABS: Alanine Aminotransferase 51 U/L (6-35); Albumin Level 4.1 g/dL (3.5-5.1); Alkaline Phosphatase 123 U/L (38-126); Anion Gap 8 mmol/L (4-12); Aspartate Amino Transferase 33 U/L (14-36); Bilirubin,Total 0.4 mg/dL (0.2-1.3); Blood Urea Nitrogen 17 mg/dL (7-17); Carbon Dioxide 30 mmol/L (22-30); Chloride 102 mmol/L (98-107); Estimated CRCL calculation 79 ml/min; Estimated Glomerular Filt Rate > 60; Glucose 127 mg/dL (65-110); Potassium 3.8 mmol/L (3.4-5.0); Sodium 140 mmol/L (137-145)
[2024-12-09 17:21] LABS: Influenza A QL RT-PCR Negative (Negative); Influenza B QL RT-PCR Negative (Negative); RSV RNA, RT-PCR Negative (Negative); SARS-CoV-2 RNA PCR Negative (Negative)
== END 2024-12-09 19:19 | disposition home or self-care (01) ==
PROVIDERS: Emergency Provider Physician Assistant
DX: H81.10 Benign paroxysmal vertigo, unspecified ear (principal); Z20.822 Contact with and (suspected) exposure to COVID-19; E11.9 Type 2 diabetes mellitus without complications; K21.9 Gastro-esophageal reflux disease without esophagitis
CPT/HCPCS: 36415; 70450; 80053; 82948; 85025; 87637; 93005; 96361; 96374; 96375; 99284; A9270; J2405; J3360; J7030